=== PATIENT | female | born 1965 | race Caucasian/White ===

== ENCOUNTER → 2016-11-27 | Outpatient (CLI) | payer OTHER ==
[~2016-11-27] MED LIST: ESTR1TAB27 PO; LISI1TAB10
--- OUTSIDE RECORDS SUMMARY | 2016-11-27 07:27 | XMS REPORT | Continuity of Care Document ---
Author Author [facility] Organization [facility] Address Unknown Phone Unavailable Allergies Active Description Code Type Severity Reaction Onset Reported/Identified Relationship to Patient Clinical Status Yes codeine [id number] Drug Allergy Mild N/A 08/29/2009 Medications Problems Date Dx Coded Attending Type Code Diagnosis Diagnosed By 03/22/2010 Ot 723.4 03/22/2010 Ot V45.4 11/08/2014 Ot 218.9 11/08/2014 Ot 285.9 11/08/2014 Ot 599.0 11/08/2014 Ot V72.63 11/08/2014 Ot V72.81 11/08/2014 Ot V74.8 11/08/2014 Ot 722.4 11/08/2014 Ot 786.50 11/08/2014 Ot V76.12 11/08/2014 Ot V76.12 12/09/2014 Ot 793.89 02/14/2016 Ot 786.50 CHEST PAIN NOS 02/14/2016 Ot V76.12 OTH SCREEN MAMMO-MALIGN NEOPLASM OF JERAD 02/14/2016 Ot V76.12 OTH SCREEN MAMMO-MALIGN NEOPLASM OF JERAD 02/14/2016 Ot V76.12 OTH SCREEN MAMMO-MALIGN NEOPLASM OF JERAD 02/14/2016 Ot 793.89 OTH (ABN) FINDINGS ON RADIOLOGICAL EXAMI 02/23/2016 KIRSTY CORTEZ MD Ot Z01.818 ENCOUNTER FOR OTHER PREPROCEDURAL EXAMIN 02/23/2016 KIRSTY CORTEZ MD Ot Z12.11 ENCOUNTER FOR SCREENING FOR MALIGNANT NE 02/24/2016 KIRSTY CORTEZ MD Ot K57.30 DVRTCLOS OF LG INT W/O PERFORATION OR AB 02/24/2016 KIRSTY CORTEZ MD Ot K63.5 POLYP OF COLON 02/24/2016 KIRSTY CORTEZ MD Ot Z12.11 ENCOUNTER FOR SCREENING FOR MALIGNANT NE 02/28/2016 KIRSTY CORTEZ MD Ot K57.30 DVRTCLOS OF LG INT W/O PERFORATION OR AB 02/28/2016 DIEGO LORENZ, KIRSTY Callejas Ot K63.5 POLYP OF COLON 02/28/2016 DIEGO LORENZ, KIRSTY Callejas Ot Z12.11 ENCOUNTER FOR SCREENING FOR MALIGNANT NE 11/27/2016 Ot V76.12 OTH SCREEN MAMMO-MALIGN NEOPLASM OF JERAD 11/27/2016 Ot V76.12 OTH SCREEN MAMMO-MALIGN NEOPLASM OF JERAD 11/27/2016 Ot V76.12 OTH SCREEN MAMMO-MALIGN NEOPLASM OF JERAD 11/27/2016 Ot 793.89 OTH (ABN) FINDINGS ON RADIOLOGICAL EXAMI 11/27/2016 DIEGO LORENZ, KIRSTY Callejas Ot Z01.818 ENCOUNTER FOR OTHER PREPROCEDURAL EXAMIN 11/27/2016 KIRSTY CORTEZ MD Ot Z12.11 ENCOUNTER FOR SCREENING FOR MALIGNANT NE Procedures Results Encounters ACCT No. Visit Date/Time Discharge Status Pt. Type Provider Facility Loc./Unit Complaint [id number] 02/24/2016 07:02:00 2015 09:10:00 DIS Outpatient KIRSTY CORTEZ MD [facility] SDC SCREENING [id number] 11/27/2016 07:23:00 ACT Outpatient DEBORA GARCIA DO S [facility] LAB FATIGUE,PALPITATIONS,HTN [id number] 02/22/2016 05:44:00 ACT Outpatient KIRSTY CORTEZ MD [facility] PREOP SCREENING [id number] 11/17/2014 12:22:00 Document Registration [id number] 11/08/2014 12:27:00 Document Registration [id number] 11/08/2014 12:25:00 Document Registration [id number] 12/29/2012 08:34:00 Document Registration [id number] 06/11/2011 11:41:00 Document Registration [id number] 02/13/2011 09:18:00 Document Registration [id number] 03/21/2010 06:32:00 Document Registration [id number] 03/21/2010 06:27:00 Document Registration [id number] 08/29/2009 13:05:00 Document Registration
[2016-11-27 07:35] LABS: BASOPHILS # (AUTO) 0.1 10^3/uL (0.0-0.1); BASOPHILS % (AUTO) 1 % (0-10); EOSINOPHILS # (AUTO) 0.2 10^3/uL (0.0-0.3); EOSINOPHILS % (AUTO) 4 % (0-10); LYMPHOCYTES # (AUTO) 1.5 X 10^3 (1.0-4.0); LYMPHOCYTES % (AUTO) 27 % (12-44); MEAN CORPUSCULAR HEMOGLOBIN 34 PG (25-34); MEAN CORPUSCULAR HGB CONC 35 G/DL (32-36); MEAN CORPUSCULAR VOLUME 98 FL (80-99); MEAN PLATELET VOLUME 8.9 FL (7.4-10.4); MONOCYTES # (AUTO) 0.7 X 10^3 (0.0-1.0); MONOCYTES % (AUTO) 12 % (0-12); NEUTROPHILS % (AUTO) 55 % (42-75); PLATELET COUNT 266 10^3/uL (130-400); RED BLOOD COUNT 4.19 10^6/uL (4.35-5.85); RED CELL DISTRIBUTION WIDTH 12.4 % (10.0-14.5); WHITE BLOOD COUNT 5.4 10^3/uL (4.3-11.0)
[2016-11-27 07:57] LABS: ALANINE AMINOTRANSFERASE 23 U/L (0-55); ALBUMIN 4.6 G/DL (3.2-4.5); ANION GAP 12 MMOL/L (5-14); ASPARTATE AMINO TRANSFERASE 24 U/L (5-34); BILIRUBIN,TOTAL 0.6 MG/DL (0.1-1.0); BLOOD UREA NITROGEN 14 MG/DL (7-18); BUN/CREATININE RATIO 19; CALCIUM 9.5 MG/DL (8.5-10.1); CARBON DIOXIDE 24 MMOL/L (21-32); CHLORIDE 101 MMOL/L (98-107); CREATININE SERUM 0.75 MG/DL (0.60-1.30); GFR ESTIMATED > 60; GLUCOSE 100 MG/DL (70-105); POTASSIUM 4.2 MMOL/L (3.6-5.0); SODIUM 137 MMOL/L (135-145); TOTAL PROTEIN 6.7 G/DL (6.4-8.2)
[2016-11-27 08:18] LABS: THYROID STIMULATING HORMONE 2.12 UIU/ML (0.35-4.94)
--- NOTE | 2016-11-28 07:56 | ECHOCARDIOGRAPHY REPORT ---
PROCEDURE PHYSICIAN: NAS CALLOWAY DATE OF PROCEDURE: 11/27/2016 TWO DIMENSIONAL ECHOCARDIOGRAM REPORT PRIMARY PHYSICIAN: OTHER PHYSICIAN: REFERRING PHYSICIAN: Dr. Kayleigh Barlow ORDERING PHYSICIAN: INDICATION FOR THE PROCEDURE: 1. Palpitation. 2. Cardiac murmur. 3. Tachycardia. MEASUREMENTS DERIVED VALUES LV DIAMETER (LAX) NORMALS NORMALS Diastolic 3.8 (3.6-5.2) Eject. Fract. 60% (60%+/-6%) Systolic (2.3-3.9) Diastolic Vol. % Shortening (0.22-0.42) Systolic Vol. Aortic Root IVS THICKNESS Diastolic 0.8 (0.6-1.1) LVPW THICKNESS Diastolic 0.9 (0.6-1.1) LA DIAMETER Systolic 3.1 (2.1-3.7) FINDINGS: 1. Technical quality is good. 2. The left ventricle is normal in size with normal contractility. Systolic function appeared to be normal. Estimated ejection fraction 60%. 3. The left atrium is normal in size. No clot or thrombus were seen within the left atrium. 4. The right atrium and right ventricle are normal in size. No clot or thrombus were seen within the right side. 5. Mitral valve is normal in morphology with mild mitral regurgitation noted by color Doppler flow. No mitral valve prolapse. No mitral valve stenosis. 6. Aortic valve is trileaflet with normal opening and closing pattern. No significant aortic stenosis or regurgitation was seen. 7. Tricuspid valve is normal in morphology with mild tricuspid regurgitation noted by color Doppler flow. Doppler across tricuspid valve estimated pulmonary artery pressure of 33+ right atrial pressure. 8. Pulmonic valve is functioning normally. 9. No pericardial effusion. IN CONCLUSION: 1. Normal left ventricular size and systolic function. Estimated ejection fraction 60%. 2. Mild mitral and tricuspid regurgitation. 3. Estimated pulmonary artery pressure of 40 mmHg. Job ID: [id number] Dictated Date: 11/27/2016 16:12:35 Production Machine Computer Operator Date: 11/28/2016 07:52:43 / [email or web address]
== END ==
LOC: LAB 07:23
PROVIDERS: ATTEND Family Medicine
DX: R01.1 Cardiac murmur, unspecified (principal); R53.83 Other fatigue; I10 Essential (primary) hypertension; R00.0 Tachycardia, unspecified
CPT/HCPCS: 36415; 80053; 84439; 84443; 85025; 93306